=== PATIENT | male | born 1940 | race Caucasian/White ===

== ENCOUNTER 2017-01-17 09:28 | Outpatient (CLI) | payer MEDICARE, BC ==
[~2017-01-17 09:28] MED LIST: Gadobenate Dimeglumine 529 MG/1 ML (20ML VIAL) ONE
--- NOTE | 2017-01-17 12:49 | MRI ---
LUMBAR SPINE MRI WITH AND WITHOUT CONTRAST: Date: 01/17/17 HISTORY: Abnormal bone scan. Possible metastasis at L3-L4. Prostate cancer. COMPARISON: None. CORRELATION: Bone scan dated 12/29/16. TECHNIQUE: Lumbar spine MRI is performed without intravenous Gadolinium administration. Multisequential, multipl adam imaging is performed. FINDINGS: There is appropriate T1 marrow signal intensity in the majority of the lumbar vertebra. There are Typ e II-III Modic changes on the anterior inferior L2-L3 disc space. Along the left aspect of the L3-L4 level, there is T1 marrow signal hypointensity with associated T2 and STIR hyperintensity, as well as enhancement. Type I Modic changes are favored. The distribution favors a degenerative process rather than metastatic or malignant process. A lateral left-sided osteophyte is noted. There is also eviden ce of some edema and associated enhancement involving the left facet at L4. The left L4 lamina has mi nimal enhancement and edema. Right posterior elements are unremarkable. Symmetric signal intensity of the psoas muscles. Appropriate signal intensity of visualized solid org ans. Conus medullaris terminates at the T12-L1 disc space level. As stated above, there is abnormal enhancement of the vertebral bodies at L3 and L4. No additional ab normal enhancement of the osseous structures. There is no abnormal enhancement within the thecal sac , including the cauda equina and conus medullaris. T12-L1: No significant central canal stenosis or foraminal narrowing. L1-L2: No significant central canal stenosis. Foramina are patent. L2-L3: Moderate loss of disc space height. Generalized disc bulge results in mild central canal stenosis. Na rrowing of both subarticular zones with partial obscuration of bilateral traversing L3 nerve roots. T he left laminectomy defect is noted. Overall, mild to moderate central canal stenosis. Moderate right and left foraminal narrowing. L3-L4: Broad based disc bulge, ligamentum flavum thickening, and facet hypertrophy result in moderate to sev ere central canal stenosis. There is a T2 hyperintense lesion with associated enhancement along the r ight lamina, subarticular region, measuring 0.6 cm. Synovial cyst is favored. Moderate right and crow re left foraminal narrowing. Left neural foramen is narrowed due to disc material and posterior eleme nt hypertrophy. MID L4 LEVEL: There is extensive anterior epidural lipomatosis resulting in moderate central canal stenosis. L4-L5: Generalized disc bulge, ligamentum flavum thickening, and facet hypertrophy result in moderate centra l canal stenosis. There is narrowing of the right subarticular zone with complete obscuration of alexi ersing right L5 nerve root. Left subarticular zone is patent. Moderate to severe bilateral foraminal narrowing. L5-S1: Moderate loss of disc space height. No high grade central canal stenosis. Right facet hypertrophy is noted. Severe right and moderate left foraminal narrowing. IMPRESSION: 1. 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 There is significant central canal stenosis and fo raminal narrowing at multiple levels. 2. There is no MR evidence of osseous metastasis. Abnormal marrow signal intensity at L3-L4 is felt to be on the basis of degenerative change. POS: KACEY
== END 2017-01-17 09:29 | disposition home or self-care (01) ==
LOC: MRI 09:28
PROVIDERS: ATTEND Urology
DX: C61 Malignant neoplasm of prostate (principal); M47.816 Spondylosis without myelopathy or radiculopathy, lumbar region; M99.83 Other biomechanical lesions of lumbar region; M48.061 Spinal stenosis, lumbar region without neurogenic claudication
CPT/HCPCS: 72158; A9579

== ENCOUNTER 2020-08-31 12:01 | Outpatient (CLI) | payer MEDICARE, BC | END 2020-08-31 12:02 | disposition home or self-care (01) | LOC: BICRAD 12:01 | PROVIDERS: ATTEND Internal Medicine Critical Care Medicine | DX: R06.00 Dyspnea, unspecified (principal) | CPT/HCPCS: 71046 ==

== ENCOUNTER 2020-12-16 10:17 | Outpatient (CLI) | payer MEDICARE, BC | END 2020-12-16 10:18 | disposition home or self-care (01) | LOC: CTENTCT 10:17 | PROVIDERS: ATTEND Specialist | DX: J32.9 Chronic sinusitis, unspecified (principal) | CPT/HCPCS: 70486 ==

== ENCOUNTER 2021-01-18 06:39 | Outpatient (CLI) | payer MEDICARE, BC ==
[2021-01-18 10:15] LABS: Hemoglobin 12.5 g/dL (13.5-17.5); Mean Corpuscular HGB CONC 31.2 g/dL (32.0-36.0); Mean Corpuscular Hemoglobin 28.5 pg (27.0-33.0); Mean Corpuscular Volume 91.3 fl (81.2-95.1); Mean Platelet Volume 11.2 fl (7.4-10.4); Platelet Count 203 10x3/uL (150-450); RBC Distribution Width 13.3 % (11.5-14.5); Red Blood Cell (RBC) Count 4.39 10x6/uL (4.32-5.72); White Blood Cell (WBC) Count 5.5 10x3/uL (3.5-10.5)
[2021-01-18 10:32] LABS: Anion Gap 13 mmol/L (10-20); BUN (Urea Nitrogen) 31 mg/dL (8.4-25.7); Calc. Creatinine Clearance 0 mL/min (70-130); Calcium 9.8 mg/dL (7.8-10.44); Carbon Dioxide 26 mmol/L (23-31); Chloride 107 mmol/L (98-107); Glucose 162 mg/dL (83-110); Potassium 4.8 mmol/L (3.5-5.1); Sodium 141 mmol/L (136-145)
[2021-01-18 21:59] LABS: SARS-CoV-2 PCR by NAA Not Detected (NotDetected)
== END 2021-01-18 06:40 | disposition home or self-care (01) ==
LOC: LABBT 06:39
PROVIDERS: ATTEND Specialist
DX: Z01.812 Encounter for preprocedural laboratory examination (principal); J32.8 Other chronic sinusitis; J34.3 Hypertrophy of nasal turbinates; J34.2 Deviated nasal septum; J32.0 Chronic maxillary sinusitis; J32.1 Chronic frontal sinusitis; J32.2 Chronic ethmoidal sinusitis; J32.3 Chronic sphenoidal sinusitis; Z20.822 Contact with and (suspected) exposure to COVID-19
CPT/HCPCS: 80048; 85027; U0003; U0005

== ENCOUNTER 2021-01-21 08:09 | Day surgery (SDC) | payer MEDICARE, BC ==
[2021-01-19 11:58] VITALS: BMI 24.7
[2021-01-21] MEDS ORDERED: Oxymetazoline HCl 0.05% (30 ML BOT) ONE (08:46)
[2021-01-21] MEDS ORDERED: Fentanyl 100 MCG/2 ML VIAL ONE ×2 (08:53→11:00)
[2021-01-21] MEDS ORDERED: AFRIN NASAL MIST 15 ML BOT ONE (08:58)
[2021-01-21] MEDS ORDERED: EPINEPHrine 1 MG/ML AMP ONE (08:58)
[2021-01-21] MEDS ORDERED: Bacitracin Zinc Ointment 30 gm TUBE ONE (08:58)
[2021-01-21] MEDS ORDERED: Lidocaine 1% w/Epinephrine 1:100K 20 ML VIAL ONE (08:58)
[2021-01-21] MEDS ORDERED: Ondansetron PF 4 MG/2 ML Vial ONE (09:29)
[2021-01-21] MEDS ORDERED: Dexamethasone 20 MG/5 ML VIAL ONE (09:29)
[2021-01-21] MEDS ORDERED: Lidocaine 1% PF 5 ML VIAL ONE (09:29)
[2021-01-21] MEDS ORDERED: PROPOFOL 200 MG/20 ML VIAL ONE (09:29)
[2021-01-21] MEDS ORDERED: Calcium Chloride 1 GM/10 ML Abboject SYRINGE ONE (09:29)
[2021-01-21] MEDS ORDERED: Phenylephrine 10 MG/ML VIAL ONE (09:29)
== END 2021-01-21 13:38 | disposition home or self-care (01) ==
LOC: SDC 08:09
PROVIDERS: ATTEND Specialist
PROC: 099R8ZZ Drainage of Left Maxillary Sinus, Via Natural or Artificial Opening Endoscopic (ICD-10-PCS; principal; 2021-01-21)
PROC: 099Q8ZZ Drainage of Right Maxillary Sinus, Via Natural or Artificial Opening Endoscopic (ICD-10-PCS; 2021-01-21)
PROC: 09BT8ZZ Excision of Left Frontal Sinus, Via Natural or Artificial Opening Endoscopic (ICD-10-PCS; 2021-01-21)
PROC: 09BS8ZZ Excision of Right Frontal Sinus, Via Natural or Artificial Opening Endoscopic (ICD-10-PCS; 2021-01-21)
PROC: 09BL8ZZ Excision of Nasal Turbinate, Via Natural or Artificial Opening Endoscopic (ICD-10-PCS; 2021-01-21)
PROC: 09SM4ZZ Reposition Nasal Septum, Percutaneous Endoscopic Approach (ICD-10-PCS; 2021-01-21)
PROC: 09BV8ZZ Excision of Left Ethmoid Sinus, Via Natural or Artificial Opening Endoscopic (ICD-10-PCS; 2021-01-21)
PROC: 09BU8ZZ Excision of Right Ethmoid Sinus, Via Natural or Artificial Opening Endoscopic (ICD-10-PCS; 2021-01-21)
PROC: 09CX8ZZ Extirpation of Matter from Left Sphenoid Sinus, Via Natural or Artificial Opening Endoscopic (ICD-10-PCS; 2021-01-21)
PROC: 09CW8ZZ Extirpation of Matter from Right Sphenoid Sinus, Via Natural or Artificial Opening Endoscopic (ICD-10-PCS; 2021-01-21)
DX: J32.4 Chronic pansinusitis (principal); J34.2 Deviated nasal septum; J34.3 Hypertrophy of nasal turbinates; J33.9 Nasal polyp, unspecified; Z79.82 Long term (current) use of aspirin; Z79.84 Long term (current) use of oral hypoglycemic drugs; Z79.899 Other long term (current) drug therapy
CPT/HCPCS: J0171; J1100; J2370; J2405; J2704; J3010